=== PATIENT | female | born 1995 | race Caucasian/White ===

== ENCOUNTER 2021-10-15 09:01 | Inpatient (IN) ==
[2021-10-15] MEDS ORDERED: Naloxone 0.4 MG/ML INJ IVP PRN (09:13)
[2021-10-15] MEDS ORDERED: Azithromycin 500 MG in 0.9 % Sodium Chloride 250 ML IVPB PRN (09:13)
[2021-10-15] MEDS ORDERED: *HR* Nalbuphine 10 MG/ML AMPUL IV PRN (09:13)
[2021-10-15] MEDS ORDERED: Famotidine 20 MG/2 ML VIAL IVP PRN (09:13)
[2021-10-15] MEDS ORDERED: Metoclopramide 10 MG/2 ML VIAL IVP PRN (09:13)
[2021-10-15] MEDS ORDERED: Lidocaine 1% 20 ML MDV INFILT PRN (09:13)
[2021-10-15] MEDS ORDERED: Ringers Solution, Lactated 1,000 ML IVC SCH (09:15)
[2021-10-15 10:20] LABS: Basophils # 0.1 K/mcL (0.0-0.2); Basophils % 0.5 %; Eosinophils # 0.2 K/mcL (0.0-0.6); Eosinophils % 1.8 %; Hematocrit 33.5 % (35.3-44.9); Hemoglobin 10.5 g/dL (11.5-15.4); Immature Granulocytes % 0.7 % (0-4); Lymphocytes # 2.3 K/mcL (0.6-4.6); Lymphocytes % 21.6 %; Mean Corpuscular HGB Conc 31.3 g/dL (31.6-35.5); Mean Corpuscular Hemoglobin 24.4 pg (28.0-33.3); Mean Corpuscular Volume 77.7 fL (83.0-100.0); Mean Platelet Volume 10.4 fL (9.4-12.4); Monocytes # 0.9 K/mcL (0.0-1.3); Monocytes % 8.2 %; Neutrophils # 7.2 K/mcL (1.6-8.9); Platelet Count 306 K/mcL (140-400); Red Blood Count 4.31 M/mcL (3.82-4.97); Red Cell Distribution Width 14.8 % (11.5-14.5); Segmented Neutrophils % 67.2 %; White Blood Count 10.7 K/mcL (4.3-11.1)
[2021-10-15] MEDS ORDERED: Ropivacaine/PF 0.2% 20 ML VIAL EP ONE (10:41)
[2021-10-15] MEDS ORDERED: *HR* FentaNYL (PF) 100 MCG/2 ML VIAL EP ONE (10:41)
[2021-10-15] MEDS ORDERED: EPHEDrine 50 MG/ML VIAL IVP PRN (10:41)
[2021-10-15 11:04] LABS: Influenza A PCR Negative (Negative); Influenza B PCR Negative (Negative); Resp. Syncytial Virus PCR Negative (Negative); SARS-CoV-2 by PCR (In House) Negative (Negative)
[2021-10-15 11:07] LABS: Amphetamine Screen,Urine Negative ng/mL (Cutoff=1000); Barbiturate Screen,Urine Negative ng/mL (Cutoff=200); Benzodiazepines Screen,Urine Negative ng/mL (Cutoff=200); Cannabinoid Screen,Urine Negative ng/mL (Cutoff = 50); Cocaine Screen,Urine Negative ng/mL (Cutoff= 300); Opiate Screen,Urine Negative ng/mL (Cutoff=300); Phencyclidine Screen,Urine Negative ng/mL (Cutoff=25)
[2021-10-15] MEDS: Epidural Premix (fent/bupiv) 110 ML EP SCH ×2 (11:21→17:18)
[2021-10-15] MEDS: Ondansetron 4 MG/2 ML VIAL IVP PRN ×2 (12:34→17:28)
[2021-10-15] MEDS ORDERED: Oxytocin 20 units/ LR 1000 mL 20 UNIT/1,000 ML BAG IVC SCH ×2 (16:15→21:37)
[2021-10-15] MEDS ORDERED: Lanolin 7 G OINT...G. TP PRN (21:37)
[2021-10-15] MEDS ORDERED: Oxytocin 20 units/ LR 1000 mL 20 UNIT/1,000 ML BAG IVC ONE (21:37)
[2021-10-15] MEDS ORDERED: Ondansetron ODT 4 MG TAB.RAPDIS SL PRN (21:37)
[2021-10-15] MEDS ORDERED: Measles/Mumps/Rubella Vacc 0.5 ML VIAL SQ PRN (21:37)
[2021-10-15] MEDS ORDERED: Benzocaine/Menthol 56 GM AEROSOL SPRAY TP PRN (21:37)
[2021-10-15] MEDS ORDERED: Rho Immune Globulin 1,500 UNIT SYRINGE IM PRN (21:37)
[2021-10-15] MEDS: Acetaminophen 325 MG TABLET PO SCH (22:01)
[2021-10-15] MEDS: Ibuprofen 600 MG TABLET PO SCH (22:05)
[2021-10-16 03:16] LABS: Basophils % 0.2 %; Eosinophils % 0.2 %; Hematocrit 28.7 % (35.3-44.9); Immature Granulocytes % 0.5 % (0-4); Lymphocytes % 11.3 %; Mean Corpuscular Hemoglobin 24.6 pg (28.0-33.3); Mean Corpuscular Volume 79.3 fL (83.0-100.0); Mean Platelet Volume 10.9 fL (9.4-12.4); Monocytes # 1.6 K/mcL (0.0-1.3); Monocytes % 8.9 %; Neutrophils # 13.8 K/mcL (1.6-8.9); Platelet Count 268 K/mcL (140-400); Red Blood Count 3.62 M/mcL (3.82-4.97); Segmented Neutrophils % 78.9 %
[2021-10-16 03:19] LABS: Hemoglobin 8.9 g/dL (11.5-15.4); White Blood Count 17.5 K/mcL (4.3-11.1)
[2021-10-16] MEDS: Acetaminophen 325 MG TABLET PO SCH ×3 (04:45→15:35)
[2021-10-16] MEDS: Ibuprofen 600 MG TABLET PO SCH ×2 (05:17→11:51)
[2021-10-16 07:26] VITALS: BP 106/70; PULSE 92; TEMP 97.6; O2SAT 100
[2021-10-16] MEDS ORDERED: DESVENLAFAXINE SUCCINATE 25 MG PO SCH (09:00)
[2021-10-16] MEDS ORDERED: Prenatal Vit/FA 1 EACH TABLET PO SCH (09:00)
[2021-10-17] MEDS ORDERED: Venlafaxine XR (24 HR) 37.5 MG CAP.ER.24H PO SCH (09:00)
== END 2021-10-16 17:36 | disposition home or self-care (01) | DRG 807 ==
LOC: 1NENULAB 09:01 → 1NENUOBS 21:37
PROVIDERS: ADMIT Student in an Organized Health Care Education/Training Program; ATTEND Student in an Organized Health Care Education/Training Program